=== PATIENT | male | born 1945 | race Caucasian/White ===

== ENCOUNTER → 2017-09-14 | Day surgery (SDC) | payer MEDICARE ==
[2017-09-09 14:50] LABS: BASOPHILS % 0.7 % (0.0-1.0); EOSINOPHILS # (AUTO) 0.3 (0.0-0.4); EOSINOPHILS % 5.6 % (0.0-6.0); HEMATOCRIT 34.7 % (38.2-49.6); HEMOGLOBIN 11.8 g/dL (14.0-18.0); LYMPHOCYTES # (AUTO) 1.7 (1.0-3.2); LYMPHOCYTES % 29.8 % (18.0-39.1); MEAN CORPUSCULAR HEMOGLOBIN 30.6 pg (28-32); MEAN CORPUSCULAR VOLUME 89.9 fL (81-99); MONOCYTES # (AUTO) 0.8 (0.2-0.8); MONOCYTES % 14.1 % (4.4-11.3); NEUTROPHILS # (AUTO) 2.8 (2.1-6.9); NEUTROPHILS % 49.3 % (38.7-80.0); PLATELET COUNT 179 x10e3/uL (140-360); RED BLOOD COUNT 3.86 x10e6/uL (4.3-5.7); RED CELL DISTRIBUTION WIDTH 12.5 % (11.7-14.4)
[~2017-09-14] MED LIST: AMLODIPINE BESYL5 MG PO; AMLODIPINE-ATO1 EAC2 PO; AMOX TR-K250 MG/5 M PO; ASPIRIN325 MG PO; BUPROPION HCL100 MG PO; BUPROPION XL300 MG PO; FENTANYL CITRATE/PF 100MCG/2 ML INJ ONE; GABAPENTIN300 MG PO; GABAPENTIN800 MG PO; LIDOCAINE20 MG/1 ML PO; LOVAZA1 GM PO; METOPROLOL SUCC25 MG PO; MIDAZOLAM HCL 2 MG/2 ML VIAL ONE; NEXIUM40 MG PO; PANTOPRAZOLE SO40 MG PO; PROPOFOL IV EMULSION 10 MG/ML 50 ML VIAL ONE; TRICOR145 MG PO; TYLENOL # 31 EA PO; VYTORIN 10-801 EACH PO
--- NOTE | 2017-09-14 13:55 | Operative Report ---
DATE OF PROCEDURE: September 14, 2017 REFERRING PHYSICIAN: Deion Ann MD PROCEDURE PERFORMED: Esophagogastroduodenoscopy. INDICATIONS FOR EGD: History of Romero's esophagus. MEDICATION: Patient was done under MAC. Please see anesthesiologist's note. PROCEDURE: With the patient in the left lateral decubitus position, the flexible fiberoptic Olympus gastroscope was introduced into the esophagus under direct visualization without any difficulty. There was some patchy erythema noted in the distal esophagus. Minute tongues of velvety red mucosa were noted to extend proximally from the GE junction, and biopsies were obtained. The scope was then advanced with ease into the stomach, traversing a small sliding hiatal hernia. Mucosa overlying the antrum and the body revealed some patchy areas of erythema. Several hyperplastic-appearing polyps were noted in the body of the stomach, and some were partially excised with cold biopsy forceps. The pylorus was of normal contour and shape. It was intubated with ease, and the scope was advanced all the way to the 2nd portion of the duodenum. The scope was then withdrawn slowly. Mucosa overlying the proximal 2nd portion and the duodenal bulb appeared to be within normal limits. The scope was then withdrawn back into the stomach and retroflexed. The mucosa overlying the fundus and the cardia appeared to be within normal limits. The scope was then straightened out. It was subsequently withdrawn. Patient tolerated the procedure well. IMPRESSION 1. Romero's esophagus. Biopsies obtained. 2. Small sliding hiatal hernia. 3. Gastric polyps, several, body, hyperplastic-appearing, some partially excised with cold biopsy forceps. PLAN: Follow up histology. Continue Protonix 40 mg 1 p.o. a.c. b.i.d. Job#: [id number] cc:DEION ANN MD
== END | disposition home or self-care (01) ==
LOC: OR 11:25
PROVIDERS: ATTEND Internal Medicine Gastroenterology
DX: K22.70 Barrett's esophagus without dysplasia (principal); K31.7 Polyp of stomach and duodenum; K25.9 Gastric ulcer, unspecified as acute or chronic, without hemorrhage or perforation; K44.9 Diaphragmatic hernia without obstruction or gangrene; K21.9 Gastro-esophageal reflux disease without esophagitis; K76.0 Fatty (change of) liver, not elsewhere classified; M19.90 Unspecified osteoarthritis, unspecified site; H91.90 Unspecified hearing loss, unspecified ear; I25.810 Atherosclerosis of coronary artery bypass graft(s) without angina pectoris; I12.9 Hypertensive chronic kidney disease with stage 1 through stage 4 chronic kidney disease, or unspecified chronic kidney disease; N18.9 Chronic kidney disease, unspecified; E78.5 Hyperlipidemia, unspecified; R00.1 Bradycardia, unspecified; I44.0 Atrioventricular block, first degree; I44.7 Left bundle-branch block, unspecified; F17.210 Nicotine dependence, cigarettes, uncomplicated; Z01.810 Encounter for preprocedural cardiovascular examination; Z01.812 Encounter for preprocedural laboratory examination; Z79.82 Long term (current) use of aspirin; Z95.1 Presence of aortocoronary bypass graft; Z95.5 Presence of coronary angioplasty implant and graft
CPT/HCPCS: 36415; 43239; 85025; 88305; 88312; 93005; J2250

== ENCOUNTER → 2018-05-03 | Day surgery (SDC) | payer MEDICARE ==
[2018-04-28 15:12] LABS: BASOPHILS % 0.4 % (0.0-1.0); EOSINOPHILS # (AUTO) 0.3 (0.0-0.4); EOSINOPHILS % 5.8 % (0.0-6.0); HEMATOCRIT 35.2 % (38.2-49.6); HEMOGLOBIN 11.8 g/dL (14.0-18.0); LYMPHOCYTES # (AUTO) 1.8 (1.0-3.2); LYMPHOCYTES % 34.7 % (18.0-39.1); MEAN CORPUSCULAR HGB CONC 33.5 g/dL (31-35); MEAN CORPUSCULAR VOLUME 89.6 fL (81-99); MONOCYTES # (AUTO) 0.7 (0.2-0.8); MONOCYTES % 13.5 % (4.4-11.3); NEUTROPHILS # (AUTO) 2.3 (2.1-6.9); NEUTROPHILS % 45.2 % (38.7-80.0); PLATELET COUNT 176 x10e3/uL (140-360); RED BLOOD COUNT 3.93 x10e6/uL (4.3-5.7); RED CELL DISTRIBUTION WIDTH 13.3 % (11.7-14.4)
[~2018-05-03] MED LIST changes: +AMLODIPINE-BEN1 EAC4 PO; +NIFEREX PO; +SUCRALFATE1 GM PO
[2018-05-03 14:15] VITALS: BP 115/72
--- NOTE | 2018-05-03 15:25 | Operative Report ---
DATE OF PROCEDURE: May 03, 2018 REFERRING PHYSICIAN: Deion Ann MD PROCEDURE PERFORMED: Esophagogastroduodenoscopy with polypectomy and biopsies. INDICATIONS FOR EGD: Heartburn, gastric polyps, Romero's esophagus. MEDICATION: Patient was done under MAC. Please see anesthesiologist's note. PROCEDURE: With the patient in the left lateral decubitus position, the flexible fiberoptic Olympus gastroscope was introduced into the esophagus under direct visualization without any difficulty. There was some patchy erythema noted in the distal esophagus. Minute tongues of velvety red mucosa were noted to extend proximally from the GE junction, and biopsies were obtained. The scope was then advanced with ease into the stomach, traversing a small hiatal hernia. The mucosa overlying the antrum and the body revealed some patchy erythema. Several polyps were noted in the body of the stomach up to approximately 5 and 6 mm in size. Approximately 5 were removed per snare electrocautery. The pylorus was of normal contour and shape. It was intubated with ease, and the scope was advanced all the way to the 2nd portion of the duodenum. The scope was then withdrawn slowly. Mucosa overlying the proximal 2nd portion and the duodenal bulb appeared to be within normal limits. The scope was then withdrawn back into the stomach and retroflexed. Mucosa overlying the fundus and the cardia appeared to be within normal limits. The scope was then straightened out. The stomach was decompressed. The scope was subsequently withdrawn. Patient tolerated the procedure well. IMPRESSION 1. Distal esophagitis, mild. 2. Romero's esophagus. 3. Small sliding hiatal hernia. 4. Gastritis. 5. Gastric polyps, approximately 5 removed per snare electrocautery. PLAN: Follow up histology. Continue Protonix 40 mg 1 p.o. a.c. b.i.d. and Carafate 1 gram p.o. a.c. t.i.d. and nightly. If breakthrough heartburn persists, then will add Reglan 10 mg 1 p.o. a.c. t.i.d. and nightly. Job#: [id number] cc:DEION ANN MD
== END | disposition home or self-care (01) ==
LOC: OR 08:27
PROVIDERS: ATTEND Internal Medicine Gastroenterology
DX: K22.70 Barrett's esophagus without dysplasia (principal); K31.7 Polyp of stomach and duodenum; K29.70 Gastritis, unspecified, without bleeding; K21.0 Gastro-esophageal reflux disease with esophagitis; K44.9 Diaphragmatic hernia without obstruction or gangrene; E78.5 Hyperlipidemia, unspecified; I25.810 Atherosclerosis of coronary artery bypass graft(s) without angina pectoris; E11.22 Type 2 diabetes mellitus with diabetic chronic kidney disease; I12.9 Hypertensive chronic kidney disease with stage 1 through stage 4 chronic kidney disease, or unspecified chronic kidney disease; N18.9 Chronic kidney disease, unspecified; I25.2 Old myocardial infarction; I44.0 Atrioventricular block, first degree; M19.90 Unspecified osteoarthritis, unspecified site; F32.9 Major depressive disorder, single episode, unspecified; Z01.810 Encounter for preprocedural cardiovascular examination; Z01.812 Encounter for preprocedural laboratory examination; Z79.82 Long term (current) use of aspirin; Z68.29 Body mass index [BMI] 29.0-29.9, adult; Z87.891 Personal history of nicotine dependence
CPT/HCPCS: 36415; 43239; 43251; 85025; 88305; 88312; 93005; J2250; J2704

== ENCOUNTER → 2019-02-09 | Day surgery (SDC) | payer MEDICARE ==
[2019-02-06 13:31] LABS: BASOPHILS # (AUTO) 0.1 (0.0-0.1); BASOPHILS % 0.9 % (0.0-1.0); EOSINOPHILS # (AUTO) 0.2 (0.0-0.4); EOSINOPHILS % 3.4 % (0.0-6.0); HEMATOCRIT 34.8 % (38.2-49.6); HEMOGLOBIN 11.6 g/dL (14.0-18.0); LYMPHOCYTES # (AUTO) 1.6 (1.0-3.2); LYMPHOCYTES % 29.5 % (18.0-39.1); MEAN CORPUSCULAR HEMOGLOBIN 30.6 pg (28-32); MEAN CORPUSCULAR HGB CONC 33.3 g/dL (31-35); MEAN CORPUSCULAR VOLUME 91.8 fL (81-99); MONOCYTES # (AUTO) 0.7 (0.2-0.8); MONOCYTES % 13.6 % (4.4-11.3); NEUTROPHILS # (AUTO) 2.7 (2.1-6.9); PLATELET COUNT 175 x10e3/uL (140-360); RED BLOOD COUNT 3.79 x10e6/uL (4.3-5.7); RED CELL DISTRIBUTION WIDTH 12.4 % (11.7-14.4)
[~2019-02-09] MED LIST changes: -FENTANYL CITRATE/PF 100MCG/2 ML INJ ONE; +HYOSCYAMINE 0.125 MG TAB ONE; -MIDAZOLAM HCL 2 MG/2 ML VIAL ONE
--- OUTSIDE RECORDS SUMMARY | 2019-02-09 11:29 | XMS REPORT | Summary of Care ---
Author Author [facility] Organization [facility] Address Unknown Phone Unavailable Care Team Providers Care Ingredient Mixer Name Role Phone Courtney Maguire MD Unavailable Unavailable Wilmar Ann MD PCP Bobby Patel MD Unavailable Randy Hilliard MD Unavailable Gennaro Guerrero Unavailable Paty Baca MD Unavailable Unavailable Glen Dumont MD Unavailable Jonh Graves MD Unavailable Reason for Referral * Radiology Services (Routine) Referred By Contact Referred To Contact Status Reason Specialty Diagnoses / Procedures Dar Mireles MD [address] [address] Mr Imaging [address] [facility] [address] [place] [address] Authorized Radiology Diagnoses Injury of right shoulder, initial encounter Main confirmed Arrive 30 min prior P rocedures MRI SHOULDER RIGHT WO CONTRAST Reason for Visit * Reason Comments Shoulder Injury Right Elbow Injury Right Encounter Details Care Team Description Date Type Department Dar Mireles MD [address] [address] Shoulder Injury (Right ); Elbow Injury (Right ) 11/22/2018 Office Visit [facility] Orthopedic Surgery [address] [facility]. [address], [place] [address] Allergies No Known Allergiesdocumented as of this encounter (statuses as of 11/25/2018) Medications End Date Status Medication Sig Dispensed Refills Start Date Active aspirin 325 mg tablet Take 325 mg 0 by mouth every 6 hours as needed for Pain. Active Pantoprazole Sodium 40 MG Take 40 mg by 0 PACK mouth two times daily. Active sucralfate (CARAFATE) 1 Take 1 g by 0 GM/10ML suspension mouth four times daily. Active buPROPion (WELLBUTRIN) Take 1 Tab by 90 Tab 3 300 MG XL mouth daily. 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 Active fenofibrate (TRICOR) 145 TAKE 1 TABLET 90 Tab 1 MG tabletIndications: BY MOUTH 9 Hyperlipidemia, EVERY DAY unspecified hyperlipidemia type, Essential hypertension Active amlodipine-benazepril TAKE 1 90 Cap 0 (LOTREL) 10-40 MG per CAPSULE BY 9 capsuleIndications: MOUTH DAILY Essential hypertension Active ezetimibe-simvastatin TAKE 1 TABLET 90 Tab 0 (VYTORIN) 10-80 MG per BY MOUTH 9 tabletIndications: EVERY DAY Hyperlipidemia, unspecified hyperlipidemia type, Essential hypertension Active metoprolol (TOPROL-XL) 25 TAKE 1 TAB BY 180 Tab 0 MG XL tabletIndications: MOUTH TWO 9 Essential hypertension TIMES DAILY. Active aspirin 325 mg tablet aspirin 325 0 mg tablet Take 1 tablet every day by oral route. Active Cranberry, Vacc cranberry 0 oxycoccus, (CRANBERRY extract 650 EXTRACT) 200 MG CAPS mg capsule Take 1 capsule every day by oral route. Use theracran HP once a day Active pantoprazole (PROTONIX) TK 1 T PO BID 1 40 MG tablet 9 Active Sildenafil Citrate 20 MG sildenafil 0 TABS (antihyperten sive) 20 mg tablet Take 2 tablets as needed by oral route. Active sucralfate (CARAFATE) 1 g TK 1 T PO QID 1 tablet OES 9 11/22/2018 Discontinued ezetimibe-simvastatin TAKE 1 TABLET 90 Tab 1 (VYTORIN) 10-80 MG per BY MOUTH 8 tabletIndications: EVERY DAY Hyperlipidemia, unspecified hyperlipidemia type, Essential hypertension 11/24/2018 Discontinued gabapentin (NEURONTIN) TAKE 1 90 Cap 1 300 MG capsule CAPSULE BY 9 MOUTH THREE TIMES A DAY 11/24/2018 Discontinued gabapentin (NEURONTIN) TAKE 1 TAB BY 30 Tab 1 800 MG tablet MOUTH DAILY. 9 documented as of this encounter (statuses as of 11/25/2018) Active Problems Problem Noted Date Injury of right shoulder 11/22/2018 Medicare annual wellness visit, subsequent 10/11/2017 LBBB (left bundle branch block) 09/24/2015 Sensorineural hearing loss 04/04/2015 Dizziness and giddiness 04/04/2015 Gait disorder 04/04/2015 Primary localized osteoarthrosis, hand 06/26/2014 Spinal stenosis, lumbar region, without neurogenic claudication 07/10/2013 Tear of medial cartilage or meniscus of knee, current 01/22/2013 Primary localized osteoarthrosis, lower leg 01/22/2013 Right lumbar radiculopathy 02/29/2012 DDD (degenerative disc disease), cervical 08/10/2011 Enlarged prostate 12/09/2009 HYPERTENSION 12/22/2007 PVD 12/12/2007 HYPRTRPHY PROSTATE BNG W/O URINARY OBST/LUTS 11/18/2006 CORONARY ARTERY DISEASE HYPERLIPIDEMIA SEASONAL ALLERGIES DEPRESSION FAMILY HISTORY OF CVA OR STROKE: Romero's esophagus GERD (gastroesophageal reflux disease) Esophageal ulcer Diaphragmatic hernia Gastritis documented as of this encounter (statuses as of 11/25/2018) Resolved Problems Problem Noted Date Resolved Date Rotator cuff (capsule) sprain 12/02/2014 02/23/2016 Calcific tendinitis of shoulder region 10/02/2014 02/23/2016 Spinal stenosis, lumbar region, without neurogenic claudication 02/29/2012 10/11/2017 RECTAL & ANAL BLEEDING 02/13/2008 02/23/2016 Chest pain 01/23/2008 10/11/2017 FOLLOW-UP EXAMINATION-AFTER SURGERY 12/22/2007 02/23/2016 ATHEROSCLEROTIC CARDIOVASCULAR DISEASE 11/30/2007 10/11/2017 Cellulitis 10/12/2007 02/23/2016 GERD 11/30/2006 10/11/2017 Sinusitis 11/18/2006 02/23/2016 Fatigue 11/18/2006 02/23/2016 Myalgia 11/18/2006 02/23/2016 FAMILY HISTORY OF HYPERTENSION: 02/23/2016 documented as of this encounter (statuses as of 11/25/2018) Immunizations Name Administration Dates Next Due Influenza (Preservative 02/01/2013 Free) Influenza (whole) 03/11/2012, 04/12/2011, 03/10/2010 Influenza whole 01/28/2015 Pneumococcal 13-valent 02/23/2016 Conjugate Vaccine Pneumococcal 01/28/2015 Polysaccharide Zoster Live 03/11/2012 documented as of this encounter Social History Date Tobacco Use Types Packs/Day Years Used Quit: 11/20/2003 Former Smoker Cigarettes 1 30 Smokeless Tobacco: Never Used Drinks/Week oz/Week Comments Alcohol Use Alcoholic Drinks/day: yes No Sex Assigned at Date Recorded Not on file Industry Job Start Date Occupation Not on file Not on file Not on file Travel End Travel History Travel Start No recent travel history available. documented as of this encounter Last Filed Vital Signs Reading Time Taken Comments Vital Sign - - Blood Pressure - - Pulse - - Temperature - - Respiratory Rate - - Oxygen Saturation - - Inhaled Oxygen Concentration 102.5 kg (226 lb) 11/22/2018 1:29 PM CDT Weight 182.9 cm (6') 11/22/2018 1:29 PM CDT Height 30.65 11/22/2018 1:29 PM CDT Body Mass Index documented in this encounter Progress Notes * Dar Mireles MD - 11/22/2018 1:10 PM CDT Teaching Physician Attestation: I personally interviewed and examined the patient with the resident physician, julian elizalde have reviewed pertinent imaging findings. I generally agree with the history, physical and assessment and plan as documented, with the following noted: Since injury he cannot lift RIGHT arm, markedly weak, painful We had previously discussed shoulder surgery for prior shoulder injury, now exam c/w massive cuff tear / deficiency May need repair vs poss SCR vs poss Reverse TSA Questions were solicited from the patient and answered. The patient voiced unde rstanding of my recommendation to get MRI and follow up re treatment Case was discussed in detail with Dr. Martinez * Zhao Martinez - 11/22/2018 1:10 PM CDT Bear Kenney is a 73 y.o. male who presents to the clinic today for right shoul елена pain. Pt. states the pain began several years ago and has progressed to bein g incapacitating these past few months. He did have a significant issue when his Yosvany Tim fell on top of him in his garage. He injured his right shoulder and elbow but his elbow has improved greatly to have no pain at this time. He h as trouble with overhead acivities and has progressed. The pain is described as achy and increases with ADL activities. The pain improves with rest. Pt. has bee n treating with tylenol. Pt. complains of pain at night or while sleeping. Pt. denies numbness or tingling. Shoulder Exam: The patient is alert, and oriented to person/time/date/location. No acute distre ss. Normal mood and affect. HEENT: NC/AT Skin: Clear, no lesions, no erythema, no ecchymosis Atrophy: Normal muscle tone Tenderness: Anterior shoulder ROM: Right/ Left Abduction: 70/120 Internal Rotation L4/L4 External Rotation -10/50 ROM @90 ABD: Internal Rotation 20/30 External Rotation pain Crepitus w ROM: - Neer: positive Kat: positive Cross body: negative Speed: negative Apprehension: not tested Clunk: not tested Strength: Decreased, subscap 4-/5, rest of rtc 2/5 Distal motor function and light touch sensation intact Pulse 2+, capillary refill < 3 seconds in hand Compartments of arm and forearm soft and compressible Imaging: XR R shoulder: some minor superior migration of humeral head. XR R elbow: no fracture or dislocation, some mild arthritis Assessment: R probable massive RTC tear Plan: MRI R shoulder Likely sugery for RTC repair vs SCR Zhao Martinez MD Sports Medicine Fellow Orthopedic Surgery [facility] documented in this encounter Plan of Treatment Care Team Description Date Type Specialty Bobby Patel MD [address] [facility] [address] [place] [address] 11/28/2018 Office Visit Cardiology 11/28/2018 Ancillary Radiology Procedure Wilmra Ann MD [address] [facility] [address] [place] [address] [phone] 02/14/2019 Office Visit General Internal Medicine Martha Patrick RN 02/14/2019 Office Visit General Internal Medicine Order Schedule Name Type Priority Associated Diagnoses Ordered: 11/22/2018 ORT - XR SHOULDER RIGHT NV Charge Routine Injury of right shoulder, 3V (CHARGE ONLY) initial encounter Ordered: 11/22/2018 ORT - XR ELBOW RIGHT 3V NV Charge Routine Injury of right elbow, (CHARGE ONLY) initial encounter Expected: 11/22/2018, Expires: 11/22/2019 MRI SHOULDER RIGHT WO Imaging Routine Injury of right shoulder, CONTRAST initial encounter Health Maintenance Due Date Last Done Comments TETANUS SHOT (ADULT) 1960 BMI FOLLOW UP PLAN 10/11/2018 10/11/2017, 10/11/2017 MEDICARE AWV 10/11/2018 10/11/2017 FLU VACCINE > 6 MONTHS 10/19/2018 02/19/2016, 01/28/2015, 02/01/2013, Additional history exists FALL SCREEN 11/23/2019 11/22/2018 COLON CANCER SCREENIN05/15/2020 05/15/2015, 03/21/2013 COLONOSCOPY AAA Screen Completed 01/17/2014 PNEUMOVAX >=65 (PPSV23) Completed 01/28/2015 PREVNAR >=65 (PCV13) Completed 02/23/2016 documented as of this encounter Results * XR ELBOW RIGHT 3 VIEWS (COMPLETE) (11/22/2018 2:11 PM CDT) Specimen Narrative Performed At For result, please reference physician's note on the corresponding date. * XR SHOULDER RIGHT (COMPLETE) (11/22/2018 2:11 PM CDT) Specimen Narrative Performed At For result, please reference physician's note on the corresponding date. 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
--- OUTSIDE RECORDS SUMMARY | 2019-02-09 11:29 | XMS REPORT | Summary of Care ---
Author Author [facility] Organization [facility] Address Unknown Phone Unavailable Care Team Providers Care Hydraulic Specialist Name Role Phone Courtney Maguire MD Unavailable Unavailable Wilmar Ann MD PCP Bobby Patel MD Unavailable Randy Hilliard MD Unavailable Gennaro Guerrero Unavailable Paty Baca MD Unavailable Unavailable Glen Dumont MD Unavailable Jonh Graves MD Unavailable Reason for Visit * Reason Comments Cardiology Follow-up Encounter Details Care Team Description Date Type Department Bobby Patel MD [address] [place] [id number] Cardiology Follow-up 11/28/2018 Office Visit [facility] Cardiology [address] [place] [phone] Allergies No Known Allergiesdocumented as of this encounter (statuses as of 11/28/2018) Medications End Date Status Medication Sig Dispensed Refills Start Date Active aspirin 325 mg tablet Take 325 mg 0 by mouth every 6 hours as needed for Pain. Active buPROPion (WELLBUTRIN) Take 1 Tab by 90 Tab 3 300 MG XL mouth daily. 8 tabletIndications: Depression, unspecified depression type Active Icosapent Ethyl (VASCEPA) TAKE 1 180 Cap 1 1 g CAPS CAPSULE TWICE 9 A DAY Active fenofibrate (TRICOR) 145 TAKE 1 TABLET [...] TWO 9 Essential hypertension TIMES DAILY. Active Cranberry, Vacc cranberry 0 oxycoccus, (CRANBERRY [...] T PO QID 1 tablet OES 9 Active gabapentin (NEURONTIN) TAKE 1 90 Cap 1 300 MG capsule CAPSULE BY 9 MOUTH THREE TIMES A DAY Active gabapentin (NEURONTIN) TAKE 1 TAB BY 30 Tab 1 800 MG tablet MOUTH DAILY. 9 11/28/2018 Discontinued Pantoprazole Sodium 40 MG Take 40 mg by 0 PACK mouth two times daily. 11/28/2018 Discontinued sucralfate (CARAFATE) 1 Take 1 g by 0 GM/10ML suspension mouth four times daily. 11/28/2018 Discontinued [id number] Ethyl Esters TAKE 1 180 Each 0 1 g CAPSIndications: CAPSULE BY 9 Atherosclerosis of [place] MOUTH TWICE coronary artery of [place] DAILY heart with stable angina pectoris (HCCode) 11/28/2018 Discontinued aspirin 325 mg tablet aspirin 325 0 mg tablet Take 1 tablet every day by oral route. documented as of this encounter (statuses as of 11/28/2018) Active Problems Problem Noted Date Dyslipidemia 11/28/2018 Injury of right shoulder 11/22/2018 Medicare annual [...] as of this encounter (statuses as of 11/28/2018) Resolved Problems Problem Noted Date Resolved Date [...] as of this encounter (statuses as of 11/28/2018) Immunizations Name Administration Dates Next Due Influenza [...] Signs Reading Time Taken Comments Vital Sign 130/74 11/28/2018 9:27 AM CDT Blood Pressure 56 11/28/2018 9:27 AM CDT Pulse - - Temperature - - Respiratory Rate 97% 11/28/2018 9:27 AM CDT Oxygen Saturation - - Inhaled Oxygen Concentration 98.9 kg (218 lb) 11/28/2018 9:27 AM CDT Weight - - Height 29.57 11/22/2018 1:29 PM CDT Body Mass Index documented in this encounter Progress Notes * Bobby Patel MD - 11/28/2018 9:30 AM CDT Chief Complaint No chief complaint on file. History of Presenting Illness Bear Kenney is a 73 y.o. male who returns for follow-up evaluation. The patie nt has documented coronary artery disease and underwent coronary artery bypass r oughly 10 years ago. The patient is limited his ability to exercise due to low back pain with a radiculopathy. The patient is not diabetic. He does have a hi story of dyslipidemia which is managed with fenofibrate plus omega-3 fatty acids . The patient had been a long-term smoker. He discontinued the use of tobacco products successfully. He does have a history of hypertension. He currently is managed with Lotrel () and metoprolol 25 mg per day which he takes without side effects. The patient's weight is stable. He states that he sleeps poorly due to orthopedic issues and is being evaluated for shoulder surgery. Review of Systems ROS Past Medical History Past Medical History: Diagnosis Date Romero's esophagus CAD (coronary artery disease) Diaphragmatic hernia Esophageal ulcer Gastritis GERD (gastroesophageal reflux disease) Heart attack (HCCode) 03/2003 Hyperlipidemia Hypertension Personal history of surgery to heart and great vessels, presenting hazards t o health 11/2007 triple Postsurgical percutaneous transluminal coronary angioplasty status 03/2003 1- cardiac Seasonal allergic rhinitis Spinal stenosis Unspecified essential hypertension Past Surgical History Past Surgical History: Procedure Laterality Date HX CERVICAL DISC SURGERY 1986 pinched nerve HX COLONOSCOPY HX CORONARY ANGIOPLASTY WITH STENT PLACEMENT 03/2003 HX CORONARY ARTERY BYPASS 11/2007 HX CYST REMOVAL HX LEG SURGERY 03/2005 fracture- francisco placement HX LEG SURGERY 2006 francisco removal HX LUMBAR DISC SURGERY 11/08/13 HX UPPER GASTROINTESTINAL ENDOSCOPY 09/14/2017 RI INJECT ANES/STEROID FORAMEN LUMBAR/SACRAL W IMG GUIDE ,1 LEVEL Bilateral 06/26/2013 Family History Family History Problem Relation Name Age of Onset Diabetes Type II Father Hypertension Father Dialysis Neg Hx Current Outpatient Medications Current Outpatient Medications Medication Sig Dispense Refill amlodipine-benazepril (LOTREL) 10-40 MG per capsule TAKE 1 CAPSULE BY MOUTH DAILY 90 Cap 0 aspirin 325 mg tablet Take 325 mg by mouth every 6 hours as needed for Pain. buPROPion (WELLBUTRIN) 300 MG XL tablet Take 1 Tab by mouth daily. 90 Tab 3 Cranberry, Vacc oxycoccus, (CRANBERRY EXTRACT) 200 MG CAPS cranberry extract 650 mg capsule Take 1 capsule every day by oral route. Use theracran HP once a day ezetimibe-simvastatin (VYTORIN) 10-80 MG per tablet TAKE 1 TABLET BY MOUTH E VERY DAY 90 Tab 0 fenofibrate (TRICOR) 145 MG tablet TAKE 1 TABLET BY MOUTH EVERY DAY 90 Tab 1 gabapentin (NEURONTIN) 300 MG capsule TAKE 1 CAPSULE BY MOUTH THREE TIMES A DAY 90 Cap 1 gabapentin (NEURONTIN) 800 MG tablet TAKE 1 TAB BY MOUTH DAILY. (Patient gaviota ing differently: TAKE 1 TAB BY MOUTH DAILY. Indications: at night only) 30 Tab 1 Icosapent Ethyl (VASCEPA) 1 g CAPS TAKE 1 CAPSULE TWICE A DAY 180 Cap 1 metoprolol (TOPROL-XL) 25 MG XL tablet TAKE 1 TAB BY MOUTH TWO TIMES DAILY. 180 Tab 0 pantoprazole (PROTONIX) 40 MG tablet TK 1 T PO BID 1 Sildenafil Citrate 20 MG TABS sildenafil (antihypertensive) 20 mg tablet Take 2 tablets as needed by oral route. sucralfate (CARAFATE) 1 g tablet TK 1 T PO QID OES 1 No current facility-administered medications for this visit. Allergies No Known Allergies Social History Social History Tobacco Use Smoking Status Former Smoker Packs/day: 1.00 Years: 30.00 Pack years: 30.00 Types: Cigarettes Last attempt to quit: 11/20/2003 Years since quittin.0 Smokeless Tobacco Never Used Social History Substance and Sexual Activity Alcohol Use No Comment: Alcoholic Drinks/day: yes Social History Substance and Sexual Activity Drug Use No Comment: Drug use: no Social History Substance and Sexual Activity Sexual Activity Not on file Physical Examination Vitals: Vital Signs Weight - Scale: 218 lb (98.9 kg) Pulse: 56 BP: 130/74 Patient Position: Sitting Cuff Size: regular BP Location: left arm Physical Exam Constitutional: He appears healthy. No distress. HENT: Nose: Nose normal. No nasal discharge. Eyes: Conjunctivae are normal. Neck: Neck supple. No JVD present. Cardiovascular: Normal rate, regular rhythm, S1 normal and S2 normal. No extras ystoles are present. PMI is not displaced. Exam reveals no gallop, no distant he art sounds, no friction rub, no midsystolic click, no opening snap and no decrea sed pulses. No murmur heard. Pulses: Radial pulses are 3+ on the right side, and 3+ on the left side. Pulmonary/Chest: Effort normal and breath sounds normal. No stridor. He has no w heezes. He has no rales. He exhibits no tenderness. Abdominal: Soft. Bowel sounds are normal. He exhibits no distension and no mass. There is no hepatomegaly. There is no tenderness. Musculoskeletal: He exhibits no edema, tenderness or deformity. Neurological: He is alert and oriented to person, place, and time. Skin: Skin is warm and dry. Nails show no clubbing. Laboratory Data Lab Results Component Value Date WBC 6.6 10/11/2017 HGB 12.8 (L) 10/11/2017 HCT 37.0 10/11/2017 MCV 84.9 10/11/2017 PLT 203 10/11/2017 Lab Results Component Value Date NA 140 10/11/2017 Lab Results Component Value Date K 4.6 10/11/2017 Lab Results Component Value Date BUN 25 (H) 10/11/2017 Lab Results Component Value Date CREATININE 1.79 (H) 10/11/2017 Lab Results Component Value Date ALT 23 10/11/2017 AST 25 10/11/2017 GGT 20 11/30/2007 ALKPHOS 53 10/11/2017 BILITOT 0.4 10/11/2017 Lab Results Component Value Date CHOL 126 10/11/2017 LDLCALC 68 10/11/2017 TRIG 101 10/11/2017 No results found for: BNP Assessment and Plan; The patient is a 73-year-old gentleman with a history of pr ior coronary artery bypass, hypertension and dyslipidemia. He is stable on medi samy therapy. EKG reveals a left bundle branch block which is a chronic finding. The plan will be to continue his current regimen documented in this encounter Plan of Treatment Care Team Description Date Type Specialty 11/28/2018 Ancillary Radiology Procedure Wilmar Ann MD [address] [facility] [address] [place] [address] [phone] 02/14/2019 Office Visit General Internal Medicine Martha Patrick RN 02/14/2019 Office Visit General Internal Medicine Date/Time Name Type Priority Associated Diagnoses 11/28/2018 10:13 AM CDT ELECTROCARDIOGRAM ECG Routine Dyslipidemia COMPLETE Health Maintenance Due Date Last Done Comments TETANUS SHOT (ADULT) 1960 BMI FOLLOW UP PLAN 10/11/2018 10/11/2017, 10/11/2017 MEDICARE AWV 10/11/2018 10/11/2017 FLU VACCINE > 6 MONTHS 10/19/2018 02/19/2016, 01/28/2015, 02/01/2013, Additional history exists FALL SCREEN 11/23/2019 11/22/2018 COLON CANCER SCREENIN05/15/2020 05/15/2015, 03/21/2013 COLONOSCOPY AAA Screen Completed 01/17/2014 PNEUMOVAX >=65 (PPSV23) Completed 01/28/2015 PREVNAR >=65 (PCV13) Completed 02/23/2016 documented as of this encounter Procedures Comments Procedure Name Priority Date/Time Associated Diagnosis ELECTROCARDIOGRAM Routine 11/28/2018 Dyslipidemia COMPLETE 10:13 AM CDT documented in this encounter Results Not on filedocumented in this encounter Visit Diagnoses Diagnosis Dyslipidemia - Primary Other and unspecified hyperlipidemia LBBB (left bundle branch block) Other left bundle branch block documented in this encounter Insurance Type Payer Benefit Subscriber ID Effective Phone Address Plan / Dates Group Medicare [employer] [facility] xxxxxxxxx 2016-P [address] [place] [address] [place] [address] documented as of this encounter Advance Directives Patient Manager Bar Explanation Type Date Recorded Power of Medical Record Administrator
--- OUTSIDE RECORDS SUMMARY | 2019-02-09 11:29 | XMS REPORT | Summary of Care ---
Author Author [facility] Organization [facility] Address Unknown Phone Unavailable Care Team Providers Care Creative/Art Director Name Role Phone Courtney Maguire MD Unavailable Unavailable Wilmar Ann MD PCP Bobby Patel MD Unavailable Randy Hilliard MD Unavailable Gennaro Guerrero Unavailable Paty Baca MD Unavailable Unavailable Glen Dumont MD Unavailable Jonh Graves MD Unavailable Reason for Visit * Reason Comments Follow Up Right shoulder Encounter Details Care Team Description Date Type Department Dar Mireles MD [address] [place], [place] [id number] Follow Up (Right shoulder ) 12/05/[address] [facility] [address] [facility], [place] [address] Allergies No Known Allergiesdocumented as of this encounter (statuses as of 12/05/2018) Medications End Date Status Medication Sig Dispensed [...] as of this encounter (statuses as of 12/05/2018) Active Problems Problem Noted Date Complete tear of right rotator cuff 12/05/2018 Dyslipidemia 11/28/2018 Injury of right shoulder 11/22/2018 [...] as of this encounter (statuses as of 12/05/2018) Resolved Problems Problem Noted Date Resolved Date [...] as of this encounter (statuses as of 12/05/2018) Immunizations Name Administration Dates Next Due Influenza [...] Inhaled Oxygen Concentration 102.5 kg (226 lb) 12/05/2018 1:24 PM CDT Weight 182.9 cm (6') 12/05/2018 1:24 PM CDT Height 30.65 12/05/2018 1:24 PM CDT Body Mass Index documented in this encounter Progress Notes * Dar Mireles MD - 12/05/2018 1:29 PM CDT Bear Kenney is a 73 y.o. male who presents to the clinic today for right shoul елена MRI follow up Has ongoing pain, weakness, limited w ADLs for RUE. Would like to be able to use arm better. Pt. states the pain began several years ago and has progressed to being incapaci tating these past few months. He did have a significant issue when his Yosvany Keaton milneron fell on top of him in his garage. He injured his right shoulder and elbow but his elbow has improved greatly to have no pain at this time. He has trouble with overhead acivities and has progressed. The pain is described as achy and i ncreases with ADL activities. The pain improves with rest. Pt. has been treating with tylenol. Pt. complains of pain at night or while sleeping. Pt. denies num bness or tingling. Shoulder Exam: The patient is alert, and oriented to person/time/date/location. No acute distre ss. Normal mood and affect. HEENT: NC/AT Skin: Clear, no lesions, no erythema, no ecchymosis Atrophy: Normal muscle tone Tenderness: Anterior shoulder ROM: Right/ Left Abduction: 70/130 Internal Rotation L4/T9 External Rotation -10/50 ROM @90 ABD: Internal [...] arm and forearm soft and compressible Imaging: Previous visit XR R shoulder: some minor superior migration of humeral head. XR R elbow: no fracture or dislocation, some mild arthritis INTERPRETATION TECHNIQUE: Magnetic resonance imaging of the SHOULDER was performed WITHOUT injected contrast. HISTORY: S49.91XA: Unspecified injury of right shoulder and upper arm, initial encounter, injury, restricted mobility, query rotator cuff tear COMPARISON: MRI of the right shoulder December 22, 2015. FINDINGS: Motion artifact partially limits sensitivity and specificity of the exam. MUSCLES AND TENDONS: Rotator Cuff: Tendons: * Interval full-thickness tearing of the conjoined supraspinatus and infraspinatus tendons, the full-thickness defect measures 3.2 cm (ML) x 3.2 cm (AP). * Low-grade intrasubstance partial thickness tearing of the superior subscapularis tendon. Muscles: Moderate atrophy of the supraspinatus and infraspinatus. Biceps Tendon: Subtle medial subluxation from the superior most aspect of the intertubercular groove, intra-articular intrasubstance degeneration and low-grade partial tearing. GLENOHUMERAL JOINT: Glenoid Labrum: Mildly progressed diffuse degenerative tearing, most notably the posterior superior, posterior, and anteroinferior labrum. Articular Cartilage: High-grade erosion of the anterior glenoid cartilage. AC JOINT AND ACROMION: Mild hypertrophic degenerative changes of the acromioclavicular joint, synovitis and trace effusion.. Lateral downsloping of the acromion. BONE: No specific evidence of a focal or infiltrative bone marrow replacing abnormality. No acute fracture. Superior subluxation of the humeral head. SOFT TISSUES: Subacromial subdeltoid bursal fluid, in keeping with full-thickness rotator cuff tear. IMPRESSION: 1. 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 2. Low-grade intrasubstance partial thickness tearing of the superior subscapularis tendon. 3. Tendinosis with low-grade partial tearing of the intra-articular long head of the biceps tendon. 4. Mild degenerative changes of the glenohumeral joint, including progressed degenerative tearing of the glenoid labrum. 5. Mild acromioclavicular osteoarthritis. Signed by: Dr. Anup Andrade D.O., M.M.M. on 11/29/2018 9:30 AM Assessment/Plan: R shoulder massive RTC tear I discussed rotator cuff tears and natural history. We discussed nonoperative ve rsus surgical treatment. We discussed arthroscopic rotator cuff repair, along with related procedures. We discussed surgery itself, block anesthesia, postoperative recovery including 8 weeks sling immobilizer. We discussed postoperative physical therapy and lengt hy time it takes to recover from rotator cuff repair as well as postoperative ac tivity restrictions and timeframe for return to activities. Will plan biceps/labral, subacromial and/or distal clavicle bony work as indicat ed. Possible collagen patch or dermal allograft augmentation discussed Poss amniotic graft use in his case discussed Possible need for superior capsule reconstruction discussed ALternative of reverse Total shoulder discussed Questions were solicited and answered. The patient voiced understanding of my re commendation and would like to proceed with repair Overall this visit lasted > 25 minutes, over half of which was spent counseling re diagnosis, prognosis, treatment options (including surgical and nonsurgical), and answering related questions. documented in this encounter Plan of Treatment Care Team Description Date Type Specialty Wilmar Ann MD [address] [place] [id number] [phone] 02/14/2019 Office Visit General Internal Medicine Martha Patrick RN 02/14/2019 Office Visit General Internal Medicine Health Maintenance Due Date Last Done Comments TETANUS SHOT (ADULT) 1960 BMI FOLLOW UP PLAN 10/11/2018 10/11/2017, 10/11/2017 MEDICARE AWV 10/11/2018 10/11/2017 FLU VACCINE > 6 MONTHS 10/19/2018 02/19/2016, 01/28/2015, 02/01/2013, Additional history exists FALL SCREEN 11/23/2019 12/05/2018 COLON CANCER SCREENIN05/15/2020 05/15/2015, 03/21/2013 COLONOSCOPY AAA Screen Completed 01/17/2014 PNEUMOVAX >=65 (PPSV23) Completed 01/28/2015 PREVNAR >=65 (PCV13) Completed 02/23/2016 documented as of this encounter Results Not on filedocumented in this encounter Visit Diagnoses Diagnosis Complete tear of right rotator cuff - Primary documented in this encounter Insurance Type Payer Benefit Subscriber ID Effective Phone Address Plan / Dates Group Medicare [employer] [facility] xxxxxxxxx 2016-P [address] MEDICARE resent [address] [place] [address] documented as of this encounter Advance Directives Patient Dozer Operator Explanation Type Date Recorded Power of Material Handler
[2019-02-09 15:55] VITALS: BP 131/77
--- NOTE | 2019-02-09 20:27 | Operative Report ---
DATE OF PROCEDURE: 02/09/2019 SURGEON: Randy Hilliard MD PROCEDURE: Colonoscopy with polypectomy. INDICATIONS FOR COLONOSCOPY: Surveillance colonoscopy, personal history of colon polyps. MEDICATIONS: The patient was done under MAC, please see anesthesiologist's note. PROCEDURE IN DETAIL: With the patient in left lateral decubitus position, a flexible fiberoptic Olympus colonoscope was inserted into the rectum with ease and advanced all the way to the cecum. It was then withdrawn slowly. Mucosa overlying the cecum and ascending colon appeared to be within normal limits. One polyp was hot snared from the transverse colon. The descending appeared to be within normal limits. Four polyps were hot snared and one polyp was hot biopsied from the sigmoid colon. The rectum appeared to be within normal limits. The scope was then retroflexed into the distal rectum and moderate-sized internal hemorrhoids were noted, none of which was actively bleeding. The scope was then straightened out, it was subsequently withdrawn. The patient tolerated procedure well. IMPRESSION: 1. Transverse colon polyp x1, hot snared. 2. Sigmoid colon polyps x5, four hot snared and one hot biopsied. 3. Internal hemorrhoids, none actively bleeding. PLAN: Follow up histology. Initiate high-fiber, low-fat diet. The patient might benefit from a followup colonoscopy in 3 years. Randy Hilliard MD [facility]/ROJELIO /[id number]
== END | disposition home or self-care (01) ==
LOC: OR 11:19
PROVIDERS: ATTEND Internal Medicine Gastroenterology
DX: Z09 Encounter for follow-up examination after completed treatment for conditions other than malignant neoplasm (principal); D12.5 Benign neoplasm of sigmoid colon; K64.8 Other hemorrhoids; K29.60 Other gastritis without bleeding; K22.70 Barrett's esophagus without dysplasia; K28.9 Gastrojejunal ulcer, unspecified as acute or chronic, without hemorrhage or perforation; K44.9 Diaphragmatic hernia without obstruction or gangrene; I12.9 Hypertensive chronic kidney disease with stage 1 through stage 4 chronic kidney disease, or unspecified chronic kidney disease; N18.9 Chronic kidney disease, unspecified; I44.0 Atrioventricular block, first degree; I25.810 Atherosclerosis of coronary artery bypass graft(s) without angina pectoris; R00.1 Bradycardia, unspecified; E78.5 Hyperlipidemia, unspecified; I25.2 Old myocardial infarction; F32.9 Major depressive disorder, single episode, unspecified; Z01.810 Encounter for preprocedural cardiovascular examination; Z01.812 Encounter for preprocedural laboratory examination; Z79.82 Long term (current) use of aspirin; Z68.29 Body mass index [BMI] 29.0-29.9, adult; Z95.1 Presence of aortocoronary bypass graft; Z95.5 Presence of coronary angioplasty implant and graft; Z87.891 Personal history of nicotine dependence
CPT/HCPCS: 36415; 45384; 45385; 85025; 88305; 93005; J2704; 45378

== ENCOUNTER 2020-02-19 12:39 | Inpatient (IN) | payer MEDICARE ==
[~2020-02-19] VITALS: Ht 182.9 cm; Wt 90.3 kg
[~2020-02-19 12:39] MED LIST changes: -HYOSCYAMINE 0.125 MG TAB ONE; -PROPOFOL IV EMULSION 10 MG/ML 50 ML VIAL ONE
[2020-02-19 13:35] LABS: BASOPHILS % 0.3 % (0.0-1.0); EOSINOPHILS # (AUTO) 0.1 (0.0-0.4); EOSINOPHILS % 0.6 % (0.0-6.0); HEMATOCRIT 32.7 % (38.2-49.6); HEMOGLOBIN 10.9 g/dL (14.0-18.0); LYMPHOCYTES # (AUTO) 0.9 (1.0-3.2); LYMPHOCYTES % 9.6 % (18.0-39.1); MEAN CORPUSCULAR HEMOGLOBIN 29.9 pg (28-32); MEAN CORPUSCULAR HGB CONC 33.3 g/dL (31-35); MEAN CORPUSCULAR VOLUME 89.8 fL (81-99); MONOCYTES # (AUTO) 0.9 (0.2-0.8); MONOCYTES % 10.4 % (4.4-11.3); NEUTROPHILS # (AUTO) 7.1 (2.1-6.9); NEUTROPHILS % 78.7 % (38.7-80.0); PLATELET COUNT 198 x10e3/uL (140-360); RED BLOOD COUNT 3.64 x10e6/uL (4.3-5.7); RED CELL DISTRIBUTION WIDTH 12.5 % (11.7-14.4)
[2020-02-19] MEDS: MORPHINE SULFATE INJ 4 MG/ML INJ 1ML IV PRN ×2 (13:44→18:35)
[2020-02-19 13:53] LABS: ALBUMIN 3.6 g/dL (3.5-5.0); ANION GAP 15.1 mmol/L (8-16); CALCIUM 9.2 mg/dL (8.4-10.2); CREATININE, SERUM 1.81 mg/dL (0.72-1.25); POTASSIUM 4.1 mmol/L (3.5-5.1)
[2020-02-19] MEDS ORDERED: MORPHINE SULFATE INJ 2 MG/ML SYR IV PRN (16:00)
[2020-02-19] MEDS ORDERED: ONDANSETRON HCL INJ 2MG/ML 2ML 2 MG/ML VIAL IV PRN (16:00)
[2020-02-19 16:30] LABS: CLARITY,URINE CLEAR (CLEAR); COLOR,URINE YELLOW (YELLOW)
[2020-02-19 16:32] LABS: KETONES,URINE NEGATIVE (NEGATIVE); LEUKOCYTE ESTERASE ,URINE NEGATIVE (NEGATIVE); NITRITE,URINE NEGATIVE (NEGATIVE); PROTEIN,URINE DIPSTICK NEGATIVE (NEGATIVE)
[2020-02-19 16:40] LABS: BACTERIA,URINE RARE /HPF; EPITHELIAL CELLS,URINE FEW /LPF; RBC,URINE 0-5 /HPF (0-5); WBC,URINE (MAN) 0-5 /HPF (0-5)
[2020-02-19] MEDS ORDERED: CEFEPIME 1GM/NS 0.9% 50 ML 50 ML IV SCH (18:00)
[2020-02-19] MEDS ORDERED: VANCOMYCIN 750MG/NS 150ML IVPB 150 ML IV SCH (18:30)
[2020-02-19 20:00] VITALS: BP 173/66
[2020-02-19] MEDS ORDERED: HYDROCODONE/APAP 5MG-325MG TAB PO PRN (20:15)
[2020-02-19] MEDS ORDERED: ACETAMINOPHEN 325 MG TAB PO PRN (20:30)
[2020-02-19 21:00] VITALS: BP 173/66
[2020-02-19] MEDS: PIPER-TAZ 3.375 GM 50 ML IV SCH (21:03)
[2020-02-19] MEDS: FENOFIBRATE 145 MG TAB PO SCH (21:03)
[2020-02-19] MEDS: GABAPENTIN 300 MG CAP PO SCH ×2 (21:03→21:05)
[2020-02-19] MEDS: SODIUM CHLORIDE 0.9% 1000ML 1,000 ML IV SCH (21:05)
[2020-02-19] MEDS: SUCRALFATE 1 GM TAB PO SCH (21:13)
[2020-02-20] VITALS (8 sets, daily range): BP systolic 119–152; BP diastolic 48–61
[2020-02-20] MEDS: MORPHINE SULFATE INJ 2 MG/ML SYR IV PRN ×3 (00:01→12:26)
[2020-02-20] MEDS: PIPER-TAZ 3.375 GM 50 ML IV SCH ×2 (05:33→17:07)
[2020-02-20] MEDS: SODIUM CHLORIDE 0.9% 1000ML 1,000 ML IV SCH ×2 (05:34→17:07)
[2020-02-20 06:39] LABS: BASOPHILS % 0.4 % (0.0-1.0); EOSINOPHILS # (AUTO) 0.1 (0.0-0.4); EOSINOPHILS % 1.4 % (0.0-6.0); HEMOGLOBIN 9.8 g/dL (14.0-18.0); LYMPHOCYTES # (AUTO) 0.7 (1.0-3.2); LYMPHOCYTES % 7.9 % (18.0-39.1); MEAN CORPUSCULAR HEMOGLOBIN 30.2 pg (28-32); MEAN CORPUSCULAR HGB CONC 33.8 g/dL (31-35); MEAN CORPUSCULAR VOLUME 89.2 fL (81-99); MONOCYTES # (AUTO) 0.9 (0.2-0.8); MONOCYTES % 10.3 % (4.4-11.3); NEUTROPHILS # (AUTO) 6.7 (2.1-6.9); NEUTROPHILS % 79.6 % (38.7-80.0); PLATELET COUNT 166 x10e3/uL (140-360); RED BLOOD COUNT 3.25 x10e6/uL (4.3-5.7); RED CELL DISTRIBUTION WIDTH 12.5 % (11.7-14.4)
[2020-02-20 07:03] LABS: CALCIUM 8.1 mg/dL (8.4-10.2); CREATININE, SERUM 1.66 mg/dL (0.72-1.25)
[2020-02-20] MEDS: SUCRALFATE 1 GM TAB PO SCH ×4 (07:52→20:34)
[2020-02-20] MEDS: PANTOPRAZOLE SOD 40 MG TABEC PO SCH ×2 (07:52→17:07)
[2020-02-20] MEDS: GABAPENTIN 300 MG CAP PO SCH ×4 (07:52→20:34)
[2020-02-20] MEDS: METOPROLOL SUCCINATE 25 MG TAB XL PO SCH ×2 (07:52→17:07)
[2020-02-20] MEDS ORDERED: ONDANSETRON HCL INJ 2MG/ML 2ML 2 MG/ML VIAL ONE (12:11)
[2020-02-20] MEDS ORDERED: SEVOFLURANE INHAL SOLN 250 ML PEN BTL ONE (12:11)
[2020-02-20] MEDS ORDERED: PROPOFOL IV EMULSION 10 MG/ML 20 ML VIAL ONE (12:11)
[2020-02-20] MEDS ORDERED: DEXAMETHASONE SOD PHOS INJ 4 MG/ML VIAL ONE (12:11)
[2020-02-20] MEDS ORDERED: LIDOCAINE HCL 2% LOCAL INJ 5 ML SDV VIAL INJ ONE (12:11)
[2020-02-20] MEDS ORDERED: MIDAZOLAM HCL 2 MG/2 ML VIAL ONE (12:23)
[2020-02-20] MEDS ORDERED: FENTANYL CITRATE/PF 100MCG/2 ML INJ ONE (12:23)
[2020-02-20] MEDS ORDERED: VANCOMYCIN 750MG/NS 150ML IVPB 150 ML IV SCH (13:00)
[2020-02-20] MEDS ORDERED: BUPIVACAINE HCL 0.5% INJ 30 ML VIAL INJ ONE (13:45)
[2020-02-20] MEDS ORDERED: ONDANSETRON HCL INJ 2MG/ML 2ML 2 MG/ML VIAL IV PRN (14:15)
[2020-02-20] MEDS ORDERED: HYDROCODONE/APAP 5MG-325MG TAB PO PRN (14:15)
[2020-02-20] MEDS ORDERED: ACETAMINOPHEN 325 MG TAB PO PRN (14:15)
[2020-02-20] MEDS: VANCOMYCIN 750MG/NS 150ML IVPB 150 ML IV SCH (15:18)
[2020-02-20] MEDS: ASPIRIN 325 MG TAB PO SCH (15:18)
[2020-02-20] MEDS ORDERED: LACTULOSE SYRUP 20 GM/30 ML UDC PO PRN (20:15)
[2020-02-20] MEDS: FENOFIBRATE 145 MG TAB PO SCH (20:34)
[2020-02-20] MEDS: DOCUSATE SODIUM 100 MG CAP PO PRN (20:49)
[2020-02-21] VITALS (8 sets, daily range): BP systolic 135–150; BP diastolic 57–72
[2020-02-21] MEDS: SODIUM CHLORIDE 0.9% 1000ML 1,000 ML IV SCH (01:31)
[2020-02-21] MEDS: PIPER-TAZ 3.375 GM 50 ML IV SCH ×3 (01:31→17:55)
[2020-02-21] MEDS: VANCOMYCIN 750MG/NS 150ML IVPB 150 ML IV SCH ×2 (03:38→15:49)
[2020-02-21 05:43] LABS: BASOPHILS # (AUTO) 0.1 (0.0-0.1); BASOPHILS % 0.7 % (0.0-1.0); EOSINOPHILS # (AUTO) 0.3 (0.0-0.4); EOSINOPHILS % 4.4 % (0.0-6.0); HEMATOCRIT 30.1 % (38.2-49.6); HEMOGLOBIN 10.1 g/dL (14.0-18.0); LYMPHOCYTES # (AUTO) 0.9 (1.0-3.2); LYMPHOCYTES % 12.7 % (18.0-39.1); MEAN CORPUSCULAR HEMOGLOBIN 30.6 pg (28-32); MEAN CORPUSCULAR HGB CONC 33.6 g/dL (31-35); MEAN CORPUSCULAR VOLUME 91.2 fL (81-99); MONOCYTES # (AUTO) 0.9 (0.2-0.8); MONOCYTES % 11.6 % (4.4-11.3); NEUTROPHILS # (AUTO) 5.1 (2.1-6.9); NEUTROPHILS % 70.1 % (38.7-80.0); PLATELET COUNT 179 x10e3/uL (140-360); RED CELL DISTRIBUTION WIDTH 12.6 % (11.7-14.4)
[2020-02-21] MEDS: SUCRALFATE 1 GM TAB PO SCH ×4 (08:30→20:59)
[2020-02-21] MEDS: PANTOPRAZOLE SOD 40 MG TABEC PO SCH ×2 (08:30→17:55)
[2020-02-21] MEDS: GABAPENTIN 300 MG CAP PO SCH ×4 (08:30→20:59)
[2020-02-21] MEDS: ASPIRIN 325 MG TAB PO SCH (08:30)
[2020-02-21] MEDS: METOPROLOL SUCCINATE 25 MG TAB XL PO SCH ×2 (08:30→17:55)
[2020-02-21] MEDS: FENOFIBRATE 145 MG TAB PO SCH (20:59)
[2020-02-22] VITALS (7 sets, daily range): BP systolic 124–158; BP diastolic 62–71
[2020-02-22] MEDS: PIPER-TAZ 3.375 GM 50 ML IV SCH ×3 (01:01→16:28)
[2020-02-22] MEDS: VANCOMYCIN 750MG/NS 150ML IVPB 150 ML IV SCH (03:01)
[2020-02-22 06:09] LABS: BASOPHILS % 0.5 % (0.0-1.0); EOSINOPHILS # (AUTO) 0.4 (0.0-0.4); EOSINOPHILS % 5.8 % (0.0-6.0); HEMATOCRIT 31.5 % (38.2-49.6); HEMOGLOBIN 10.6 g/dL (14.0-18.0); LYMPHOCYTES % 15.5 % (18.0-39.1); MEAN CORPUSCULAR HEMOGLOBIN 30.3 pg (28-32); MEAN CORPUSCULAR HGB CONC 33.7 g/dL (31-35); MONOCYTES # (AUTO) 0.8 (0.2-0.8); MONOCYTES % 13.4 % (4.4-11.3); NEUTROPHILS % 64.3 % (38.7-80.0); PLATELET COUNT 197 x10e3/uL (140-360); RED CELL DISTRIBUTION WIDTH 12.4 % (11.7-14.4)
[2020-02-22 06:28] LABS: ANION GAP 11.1 mmol/L (8-16); CALCIUM 8.3 mg/dL (8.4-10.2); CREATININE, SERUM 1.28 mg/dL (0.72-1.25); POTASSIUM 4.1 mmol/L (3.5-5.1)
[2020-02-22] MEDS: ASPIRIN 325 MG TAB PO SCH (08:59)
[2020-02-22] MEDS: SUCRALFATE 1 GM TAB PO SCH ×4 (08:59→20:26)
[2020-02-22] MEDS: GABAPENTIN 300 MG CAP PO SCH ×4 (09:00→20:26)
[2020-02-22] MEDS: PANTOPRAZOLE SOD 40 MG TABEC PO SCH ×2 (09:00→16:30)
[2020-02-22] MEDS: METOPROLOL SUCCINATE 25 MG TAB XL PO SCH ×2 (09:00→16:30)
[2020-02-22] MEDS ORDERED: ONDANSETRON HCL 4 MG ORAL DISINTEGRATING TAB PO PRN (10:00)
[2020-02-22] MEDS: FENOFIBRATE 145 MG TAB PO SCH (20:26)
[2020-02-22] MEDS: DOCUSATE SODIUM 100 MG CAP PO PRN (20:26)
[2020-02-23] VITALS: BP 161/62
[2020-02-23] MEDS: PIPER-TAZ 3.375 GM 50 ML IV SCH ×3 (00:52→18:03)
[2020-02-23 04:00] VITALS: BP 162/68
[2020-02-23 05:40] LABS: BASOPHILS # (AUTO) 0.1 (0.0-0.1); BASOPHILS % 0.8 % (0.0-1.0); EOSINOPHILS # (AUTO) 0.4 (0.0-0.4); EOSINOPHILS % 5.7 % (0.0-6.0); HEMATOCRIT 33.6 % (38.2-49.6); HEMOGLOBIN 11.1 g/dL (14.0-18.0); LYMPHOCYTES # (AUTO) 1.1 (1.0-3.2); LYMPHOCYTES % 17.4 % (18.0-39.1); MEAN CORPUSCULAR HEMOGLOBIN 30.2 pg (28-32); MEAN CORPUSCULAR VOLUME 91.3 fL (81-99); MONOCYTES # (AUTO) 0.8 (0.2-0.8); MONOCYTES % 12.5 % (4.4-11.3); NEUTROPHILS # (AUTO) 3.8 (2.1-6.9); NEUTROPHILS % 62.9 % (38.7-80.0); PLATELET COUNT 244 x10e3/uL (140-360); RED BLOOD COUNT 3.68 x10e6/uL (4.3-5.7); RED CELL DISTRIBUTION WIDTH 12.1 % (11.7-14.4)
[2020-02-23 06:04] LABS: ANION GAP 13.9 mmol/L (8-16); CALCIUM 8.9 mg/dL (8.4-10.2); CREATININE, SERUM 1.44 mg/dL (0.72-1.25); POTASSIUM 3.9 mmol/L (3.5-5.1)
[2020-02-23 08:00] VITALS: BP 167/75
[2020-02-23 08:52] VITALS: BP 167/75
[2020-02-23] MEDS: ASPIRIN 325 MG TAB PO SCH (09:00)
[2020-02-23] MEDS: SUCRALFATE 1 GM TAB PO SCH ×3 (09:06→18:03)
[2020-02-23] MEDS: GABAPENTIN 300 MG CAP PO SCH ×2 (09:07→14:31)
[2020-02-23] MEDS: PANTOPRAZOLE SOD 40 MG TABEC PO SCH ×2 (09:07→18:03)
[2020-02-23] MEDS: METOPROLOL SUCCINATE 25 MG TAB XL PO SCH ×2 (09:08→17:00)
[2020-02-23 12:00] VITALS: BP 141/73
[2020-02-23 16:00] VITALS: BP 141/73
[2020-02-23] MEDS ORDERED: AUGMENTIN 500-1 EACH PO (18:38)
== END 2020-02-23 19:07 | disposition home or self-care (01) | DRG 580 ==
LOC: ER 13:31 → ERHOLD 15:50 → MED/SURG2 18:25
PROVIDERS: ADMIT Internal Medicine; ATTEND Internal Medicine
PROC: 0J9B0ZZ Drainage of Perineum Subcutaneous Tissue and Fascia, Open Approach (ICD-10-PCS; principal; 2020-02-20 10:30)
DX: L02.215 Cutaneous abscess of perineum (principal); N17.9 Acute kidney failure, unspecified; N13.8 Other obstructive and reflux uropathy; I10 Essential (primary) hypertension; I25.10 Atherosclerotic heart disease of native coronary artery without angina pectoris; Z95.1 Presence of aortocoronary bypass graft; E78.5 Hyperlipidemia, unspecified; B95.5 Unspecified streptococcus as the cause of diseases classified elsewhere; N40.1 Benign prostatic hyperplasia with lower urinary tract symptoms; R33.8 Other retention of urine; R39.14 Feeling of incomplete bladder emptying; D64.9 Anemia, unspecified; E83.51 Hypocalcemia; Z20.828 Contact with and (suspected) exposure to other viral communicable diseases; E66.9 Obesity, unspecified; Z68.26 Body mass index [BMI] 26.0-26.9, adult
CPT/HCPCS: 36415; 51700; 72192; 80048; 80053; 80202; 81001; 83605; 85025; 87040; 87071; 87075; 87205; 99284; J0692; J1100; J2001; J2250; J2270; J2405; J2543; J3010; J7030; U0002

== ENCOUNTER → 2021-05-13 | Day surgery (SDC) | payer MEDICARE ==
[~2021-05-13] MED LIST changes: +AUGMENTIN 500-1 EACH PO; +LIDOCAINE HCL 2% LOCAL INJ 5 ML SDV VIAL INJ ONE; +MIDAZOLAM HCL 2 MG/2 ML VIAL ONE; +PROPOFOL IV EMULSION 10 MG/ML 20 ML VIAL ONE; +VASCEPA1 GM PO
[2021-05-13 09:14] LABS: BASOPHILS % 0.6 % (0.0-1.0); EOSINOPHILS # (AUTO) 0.1 (0.0-0.4); EOSINOPHILS % 2.3 % (0.0-6.0); HEMATOCRIT 36.6 % (38.2-49.6); HEMOGLOBIN 11.8 g/dL (14.0-18.0); LYMPHOCYTES # (AUTO) 1.3 (1.0-3.2); LYMPHOCYTES % 27.3 % (18.0-39.1); MEAN CORPUSCULAR HEMOGLOBIN 29.6 pg (28-32); MEAN CORPUSCULAR HGB CONC 32.2 g/dL (31-35); MEAN CORPUSCULAR VOLUME 91.7 fL (81-99); MONOCYTES # (AUTO) 0.7 (0.2-0.8); MONOCYTES % 13.6 % (4.4-11.3); NEUTROPHILS # (AUTO) 2.7 (2.1-6.9); NEUTROPHILS % 55.8 % (38.7-80.0); PLATELET COUNT 173 x10e3/uL (140-360); RED BLOOD COUNT 3.99 x10e6/uL (4.3-5.7)
[2021-05-13 12:00] VITALS: BP 137/72
== END | disposition home or self-care (01) ==
LOC: OR 07:54
PROVIDERS: ATTEND Internal Medicine Gastroenterology
DX: Z09 Encounter for follow-up examination after completed treatment for conditions other than malignant neoplasm (principal); K31.7 Polyp of stomach and duodenum; K29.70 Gastritis, unspecified, without bleeding; K22.70 Barrett's esophagus without dysplasia; K20.90 Esophagitis, unspecified without bleeding; K44.9 Diaphragmatic hernia without obstruction or gangrene; Z86.010 Personal history of colon polyps; J02.9 Acute pharyngitis, unspecified; I25.810 Atherosclerosis of coronary artery bypass graft(s) without angina pectoris; I10 Essential (primary) hypertension; I25.2 Old myocardial infarction; E78.00 Pure hypercholesterolemia, unspecified; N40.0 Benign prostatic hyperplasia without lower urinary tract symptoms; Z20.822 Contact with and (suspected) exposure to COVID-19; Z79.82 Long term (current) use of aspirin; Z79.899 Other long term (current) drug therapy; Z68.26 Body mass index [BMI] 26.0-26.9, adult; Z95.1 Presence of aortocoronary bypass graft; Z98.61 Coronary angioplasty status; Z87.891 Personal history of nicotine dependence
CPT/HCPCS: 36415; 43239; 43251; 85025; 93005; C9113; J2001; J2250; J2704; U0002

== ENCOUNTER → 2022-06-23 | Day surgery (SDC) | payer MEDICARE ==
[2022-06-21 11:19] LABS: BASOPHILS % 0.8 % (0.0-1.0); EOSINOPHILS # (AUTO) 0.1 (0.0-0.4); EOSINOPHILS % 3.2 % (0.0-6.0); HEMATOCRIT 32.6 % (38.2-49.6); HEMOGLOBIN 10.8 g/dL (14.0-18.0); LYMPHOCYTES % 25.1 % (18.0-39.1); MEAN CORPUSCULAR HEMOGLOBIN 29.6 pg (28-32); MEAN CORPUSCULAR HGB CONC 33.1 g/dL (31-35); MEAN CORPUSCULAR VOLUME 89.3 fL (81-99); MONOCYTES # (AUTO) 0.6 (0.2-0.8); MONOCYTES % 15.6 % (4.4-11.3); NEUTROPHILS # (AUTO) 2.1 (2.1-6.9); PLATELET COUNT 160 x10e3/uL (140-360); RED BLOOD COUNT 3.65 x10e6/uL (4.3-5.7); RED CELL DISTRIBUTION WIDTH 12.6 % (11.7-14.4)
[~2022-06-23] MED LIST changes: +ETOMIDATE 2 MG/ML 10 ML INJ IV ONE; +FENTANYL CITRATE/PF 100MCG/2 ML INJ ONE; +LACTATED RINGER'S 1,000 ML ONE; -LIDOCAINE HCL 2% LOCAL INJ 5 ML SDV VIAL INJ ONE; +METOCLOPRAMIDE HCL 10 MG/2ML VIAL ONE; -MIDAZOLAM HCL 2 MG/2 ML VIAL ONE; +POVIDONE IODINE 0.05% 0.05 % ML PO ONE
[2022-06-23 12:55] VITALS: BP 127/62
== END | disposition home or self-care (01) ==
LOC: ENDO 10:59
PROVIDERS: ATTEND Internal Medicine Gastroenterology
DX: K22.70 Barrett's esophagus without dysplasia (principal); K31.7 Polyp of stomach and duodenum; K29.70 Gastritis, unspecified, without bleeding; K31.A19 Gastric intestinal metaplasia without dysplasia, unspecified site; K44.9 Diaphragmatic hernia without obstruction or gangrene; Z86.010 Personal history of colon polyps; Z71.3 Dietary counseling and surveillance; I12.9 Hypertensive chronic kidney disease with stage 1 through stage 4 chronic kidney disease, or unspecified chronic kidney disease; N18.9 Chronic kidney disease, unspecified; Z01.810 Encounter for preprocedural cardiovascular examination; Z01.812 Encounter for preprocedural laboratory examination; Z79.82 Long term (current) use of aspirin; Z79.899 Other long term (current) drug therapy
CPT/HCPCS: 36415; 43251; 43450; 85025; 93005; C9113; J2704; J2765; J3010; J7121